=== PATIENT | female | born 1995 | race Caucasian/White ===

== ENCOUNTER 2018-09-14 10:43 | Emergency (ER) | payer BC ==
[~2018-09-14] VITALS: Ht 157.5 cm; Wt 78.2 kg
[2018-09-14 10:44] VITALS: Ht 157.5 cm; Wt 78.2 kg
[2018-09-14] MEDS ORDERED: PROZAC40 MG PO (10:45)
[2018-09-14 11:27] LABS: ALBUMIN 3.7 g/dL (3.4-5.0); ALKALINE PHOSPHATASE 102 U/L (46-116); ALT (SGPT) 30 U/L (10-68); BILIRUBIN - TOTAL 0.26 mg/dL (0.2-1.3); CALC OSMOLALITY 279 mosm/kg (275-300); CARBON DIOXIDE 29.2 mmol/L (21.0-32.0); CHLORIDE - SERUM 105 mmol/L (98-107); CREATININE - SERUM 0.7 mg/dL (0.6-1.3); GLUCOSE 92 mg/dL (74-106); POTASSIUM - SERUM 3.9 mmol/L (3.5-5.1); PROTEIN - SERUM 7.4 g/dL (6.4-8.2); SODIUM 141 mmol/L (136-145); UREA NITROGEN 9 mg/dL (7-18); eGFR NON AFRICAN AMERICAN > 90 mL/min (90-120)
[2018-09-14 11:38] LABS: HCG SERUM NEGATIVE (NEGATIVE)
[2018-09-14 11:41] LABS: BASOPHILS 0.3 % (0-2); EOSINOPHILS 2.4 % (0-7); HEMATOCRIT 41.6 % (36.0-48.0); HEMOGLOBIN 13.8 g/dL (12-16); IMMATURE GRANULOCYTES 0.4 % (0-5); LYMPHOCYTES 20.3 % (15-50); MCH 29.4 pg (26.0-34.0); MCHC 33.2 g/dL (31.0-37.0); MCV 88.7 fL (80.0-100.0); MONOCYTES 6.2 % (2-11); NEUTROPHILS 70.4 % (40-80); PLATELET COUNT 279 10x3/uL (130-400); RBC 4.69 10x6/uL (4.00-5.40); RDW 14.5 % (11.5-14.5); WBC 11.1 10x3/uL (4.8-10.8)
[2018-09-14 11:55] LABS: APPEARANCE CLEAR (CLEAR); BILIRUBIN NEGATIVE (NEGATIVE); COLOR YELLOW (YELLOW); GLUCOSE NEGATIVE (NEGATIVE); KETONE NEGATIVE (NEGATIVE); NITRITE NEGATIVE (NEGATIVE); PROTEIN NEGATIVE (NEGATIVE); UROBILINOGEN NORMAL (NORMAL)
[2018-09-14 16:05] VITALS: BP 123/70
[2018-09-15] MEDS ORDERED: ZOFRAN ODT4 MG/UDTAB PO (01:38)
== END 2018-09-14 15:33 | disposition home or self-care (01) ==
LOC: D.ER 10:43
PROVIDERS: Emergency Medicine
DX: R55 Syncope and collapse (principal); R53.1 Weakness

== ENCOUNTER 2018-09-14 21:57 | Emergency (ER) | payer BC ==
[~2018-09-14] VITALS: Ht 157.5 cm; Wt 81.8 kg
[~2018-09-14 21:57] MED LIST: PROZAC40 MG PO
[2018-09-14 22:42] VITALS: Ht 157.5 cm; Wt 81.8 kg
[2018-09-15] MEDS ORDERED: ZOFRAN ODT4 MG/UDTAB PO (01:38)
[2018-09-15 04:32] VITALS: BP 127/71
== END 2018-09-15 03:20 | disposition home or self-care (01) ==
LOC: D.ER 21:57
DX: A08.4 Viral intestinal infection, unspecified (principal); E86.0 Dehydration; R55 Syncope and collapse